=== PATIENT | male | born 1970 | race Caucasian/White ===

== ENCOUNTER 2017-02-09 15:30 | Emergency (ER) | payer OTHER ==
[~2017-02-09] VITALS: Ht 177.8 cm; Wt 117.9 kg
[2017-02-09] MEDS ORDERED: PAIN & FEVER500 MG PO (15:45)
[2017-02-09] MEDS ORDERED: NORCO 10-325 T1 EACH PO (17:45)
== END 2017-02-09 18:14 | disposition home or self-care (01) ==
LOC: ED 15:30
DX: S82.851A Displaced trimalleolar fracture of right lower leg, initial encounter for closed fracture (principal); S82.831A Other fracture of upper and lower end of right fibula, initial encounter for closed fracture; F17.200 Nicotine dependence, unspecified, uncomplicated; Z90.49 Acquired absence of other specified parts of digestive tract; W18.40XA Slipping, tripping and stumbling without falling, unspecified, initial encounter
CPT/HCPCS: 73560; 73610; 99283

== ENCOUNTER → 2020-12-21 | Emergency (ER) | payer OTHER ==
[~2020-12-21] VITALS: Ht 177.8 cm; Wt 127.0 kg
[~2020-12-21] MED LIST: NORCO 10-325 T1 EACH PO; PAIN & FEVER500 MG PO
--- NOTE | 2020-12-21 20:09 | EKG ---
[facility] [address] [facility] [place], [place] [address] Signed Normal sinus rhythm Normal ECG No previous ECGs available Confirmed by ORTEGA REYNOSO DO ([id number]) on 12/21/2020 8:09:45 PM Electronically Signed By: ORTEGA REYNOSO DO 12/21/20 2009 PATIENT NAME: YING AGUILAR Electrocardiogram DATE OF : 68 PHYSICIAN: ORTEGA REYNOSO DO REPORT #: [id number] REPORT IS CONFIDENTIAL AND NOT TO BE RELEASED WITHOUT AUTHORIZATION
== END | disposition home or self-care (01) ==
LOC: ED 04:18
DX: J20.9 Acute bronchitis, unspecified (principal); Z20.822 Contact with and (suspected) exposure to COVID-19
CPT/HCPCS: 71045; 80053; 83880; 85025; 93005; 93010; 99285-25; C9803; U0003

== ENCOUNTER 2021-06-12 16:52 | Emergency (ER) | payer OTHER ==
[~2021-06-12] VITALS: Ht 177.8 cm; Wt 127.0 kg
== END 2021-06-12 20:28 | disposition home or self-care (01) ==
LOC: ED 16:52
DX: J10.1 Influenza due to other identified influenza virus with other respiratory manifestations (principal); F17.200 Nicotine dependence, unspecified, uncomplicated; Z20.822 Contact with and (suspected) exposure to COVID-19
CPT/HCPCS: 51798; 71045; 80048; 81001; 99283-25; A9270; C9803; J7030; U0003

== ENCOUNTER 2021-06-25 09:29 | Emergency (ER) | payer OTHER ==
[~2021-06-25] VITALS: Ht 177.8 cm; Wt 124.3 kg
--- OUTSIDE RECORDS SUMMARY | 2021-06-25 09:36 | XMS ---
PreManage Notification: YING AGUILAR Security Vp Clinical Events No recent Security Events currently on file CRITERIA MET - [facility] - 2 Visits in 30 Days CARE PROVIDERS There are no care providers on record at this time. Richard has no Care Guidelines for this patient. [facility] MO[facility] TOTAL 5 NOTE: Visits indicate total known visits. ED/C VISIT TRACKING (12 MO.) [facility] 09[facility] [facility] COMPLAINT: - SOB, COUGHING BLOOD, CHEST PAIN [facility] DIAGNOSES: - Back Pain - Tailbone Pain - severe back pain - Pain in thoracic spine 06[facility]15[facility]21 18[facility] DIAGNOSES: - abd pain - Abdominal Pain - Diverticulitis of large intestine without perforation or abscess without bleeding 06/12/2021 16:53 [facility] [place] TYPE: Emergency COMPLAINT: - COUGH,FEVER DIAGNOSES: - Fever, unspecified - Influenza due to other identified influenza virus with other respiratory manifestations - Nicotine dependence, unspecified, uncomplicated 12/21/2020 04:[address] [facility] [place] TYPE: Emergency COMPLAINT: - SHORTNESS OF BREATH DIAGNOSES: - Nicotine dependence, unspecified, uncomplicated - Acute bronchitis, unspecified - Shortness of breath INPATIENT VISIT TRACKING (12 MO.) No inpatient visits to display in this time frame [email or web address]
[2021-06-25] MEDS ORDERED: METHOCARBAMOL750 MG PO (10:02)
[2021-06-25] MEDS ORDERED: IBUPROFEN600 MG PO (10:02)
[2021-06-25] MEDS ORDERED: ELIQUIS5 MG PO (14:18)
--- NOTE | 2021-06-26 07:12 | EKG ---
[facility] [address] [place], [place] [address] Signed Normal sinus rhythm Normal ECG When compared with ECG of 21-DEC-2020 04:34, No significant change was found Confirmed by JACOB CHAMBERS MD ([id number]) on 06/26/2021 7:12:02 AM Electronically Signed By: JACOB CHAMBERS MD 06/26/21711 PATIENT NAME: YING AGUILAR CHRIS Electrocardiogram DATE OF : 68 PHYSICIAN: JACOB CHAMBERS MD REPORT #: [id number] REPORT IS CONFIDENTIAL AND NOT TO BE RELEASED WITHOUT AUTHORIZATION
== END 2021-06-25 14:48 | disposition home or self-care (01) ==
LOC: ED 09:29
DX: I26.99 Other pulmonary embolism without acute cor pulmonale (principal); F17.200 Nicotine dependence, unspecified, uncomplicated; Z79.899 Other long term (current) drug therapy
CPT/HCPCS: 36415; 71045; 71260; 80048; 83880; 85025; 85379; 93005; 93010; 94640; 96374; 96375; 99285-25; J1170; J1885; J7040; Q9967

== ENCOUNTER 2023-12-14 07:37 | Emergency (ER) | payer OTHER ==
[~2023-12-14] VITALS: Ht 177.8 cm; Wt 140.9 kg
[~2023-12-14 07:37] MED LIST changes: +ELIQUIS5 MG PO; +IBUPROFEN600 MG PO; +METHOCARBAMOL750 MG PO
[2023-12-14 08:35] VITALS: BP 137/90
== END 2023-12-14 08:35 | disposition home or self-care (01) ==
LOC: ED 07:37
DX: S49.92XA Unspecified injury of left shoulder and upper arm, initial encounter (principal); F17.200 Nicotine dependence, unspecified, uncomplicated; X50.0XXA Overexertion from strenuous movement or load, initial encounter
CPT/HCPCS: 73030; 99283